=== PATIENT | female | born 1975 | race Caucasian/White ===

== ENCOUNTER 2024-04-12 19:25 | Emergency (ER) | payer OTHER, SELFPAY ==
[2024-04-12 19:35] VITALS: BP 183/112
[2024-04-12 19:44] LABS: % Basophils 0.4 % (0-2); % Eosinophils 1.4 % (0-6); % Immature Granulocytes 0.2 % (0-0.5); % Lymphocytes 34.1 % (20.5-51.1); % Monocytes 10.8 % (1.7-9.3); % Neutrophils 53.1 % (42.2-75.2); Absolute Eosinophils 0.1 10^3/uL (0-0.7); Absolute Lymphocytes 1.9 10^3/uL (1.2-3.4); Absolute Monocytes 0.6 10^3/uL (0.1-0.6); Hematocrit 35.6 % (37.0-47.0); Hemoglobin 12.7 g/dL (12.0-16.0); Mean Corp Hgb Conc. 35.7 g/dL (33.0-37.0); Mean Corpuscular Hgb 31.2 pg (27.0-31.0); Mean Corpuscular Volume 87.5 fL (81.0-99.0); Mean Platelet Volume 10.5 fL (7.4-10.4); Nucleated Red Blood Cells % 0 %; Platelet Count 214 10^3/uL (130-400); Red Blood Cell Count 4.07 10^6/uL (4.20-5.40); Red Cell Dist. Width 11.8 % (11.5-14.5); White Blood Cell Count 5.6 10^3/uL (4.8-10.8)
[2024-04-12 20:04] LABS: ALT (SGPT) 14 U/L (0-35); AST (SGOT) 22 U/L (14-36); Albumin 4.3 g/dl (3.5-5.0); Alkaline Phosphatase 54 U/L (38-126); Blood Urea Nitrogen 17 mg/dl (7-17); Calcium 9.7 mg/dl (8.4-10.2); Carbon Dioxide 26 mmol/L (22-30); Chloride 104 mmol/L (98-107); Glucose 111 mg/dl (70-99); Potassium 3.8 mmol/L (3.5-5.1); Sodium 138 mmol/L (135-145); Total Bilirubin 0.7 mg/dl (0.2-1.3); Total Protein 6.9 g/dl (6.3-8.2); eGFR > 60.00
[2024-04-12 20:19] VITALS: BP 166/99
--- NOTE | 2024-04-12 21:10 | ED.GENMED ---
History of Present Illness
General
Chief Complaint: Blood Pressure Problem
Source: patient
Exam Limitations: none
Time Seen by Provider: 04/12/24 20:49
Nursing documentation reviewed up to this point in time: agreed with
Travel History
Have you had any contact with someone who has COVID-19?: No
Do you have any symptoms of coronavirus? Fever > 100 degrees, chills, cough, shortness of breath, sore throat, loss of taste or smell, muscle aches, or headache?: No
History of Present Illness
History of Present Illness:
48-year-old female history of hypertension POTS lupus followed by rheumatology and cardiology for hypertension she takes lisinopril 20 mg twice a day also propranolol as needed palpitations she also has chronic neck pain which she states is
degenerative, has had injections previously never required surgery she had a long day at work had some muscle aches, felt a pop in her neck with headache concerned that something was injured, blood pressure was elevated EMS was called she had
recurrent chest pressure shortness of breath recently diagnosed with pleurisy on a steroid inhaler states her chest pressure gets worse when her blood pressure is up no arm or leg weakness no visual changes
Past History
Past History
ED Past Medical History: HTN, Other (Lupus, POTS, asthma, IBS, migraine headaches) and Other (MADDEN, lupus)
ED Past Surgical History: Orthopedic (Spinal cord implant)
Social History
Tobacco: Other (Occasional)
Alcohol: Occasional
Drug: Other (Medical marijuana)
Personal:
Living: with family
Employment: Employed
Family History
Family History: Hypertension
Review of Systems
Review of Systems
All Other Systems: Not applicable
Constitutional: Denies fever or fatigue
EENT: Reports other (Neck pain)
Respiratory: Reports trouble breathing
Cardiac: Reports chest pain
ABD/GI: Reports no symptoms; Denies abdominal pain or diarrhea
: Reports no symptoms
Musculoskeletal: Reports muscle pain and neck pain
Skin: Reports no symptoms
Neurological: Reports headache
Endocrine: Reports no symptoms
Psychiatric: Reports no symptoms
Phy Exam
Physical Exam
Physical Exam:
Physical Exam
General: no apparent distress, not acutely ill
Neck: Reproducible pain in her cervical spine and the paraspinal musculature
Heart: s1/s2 regular rate and rhythm, no murmur. equal radial pulses.
Lungs: no acute respiratory distress. clear bilaterally no wheezing
Abdomen: Nontender
Neuro: alert and oriented. no focal neurological deficits
Skin: no rash
Psychiatric: well kept. interactive and cooperative
Extremities: no edema.
Course
Orders/Labs/Results
Orders:
Orders
04/12/24 19:34
CBC/With Diff [Complete Blood Count/With Diff] Urgent
CMP [Comprehensive Metabolic Panel] Urgent
04/12/24 21:03
Electrocardiogram (*1) Stat
Reason for Study: Other
Other Reason for Exam: Headache
EKG- Treatment ONCE
diazePAM [Valium Injection] 5 mg IV NOW STA
04/12/24 21:04
CT Head & Neck Angio W/wo IV Urgent
Comment: Ok to modify per DR Mcintyre
Reason For Exam: neck pain
04/12/24 23:27
Ketorolac [Toradol] 30 mg IV NOW STA
diazePAM [Valium Injection] 5 mg IV NOW STA
Abnormal Lab Results
04/12/24
19:34
RBC 4.07 L 10^6/uL
(4.20-5.40)
Hct 35.6 L %
(37.0-47.0)
MCH 31.2 H pg
(27.0-31.0)
MPV 10.5 H fL
(7.4-10.4)
Monocytes % 10.8 H %
(1.7-9.3)
Glucose 111 H mg/dl
(70-99)
04/12/24 19:34
04/12/24 19:34
Vital Signs
Initial and Last Documented VS:
Initial Vital Signs
Temp Pulse Resp Pulse Ox
98.5 F 90 18 98
04/12/24 19:28 04/12/24 19:28 04/12/24 19:28 04/12/24 19:28
Last Documented Vital Signs
Temp Pulse Resp BP Pulse Ox
98.5 F 87 16 163/101 97
04/12/24 19:28 04/12/24 21:54 04/12/24 20:19 04/12/24 21:54 04/12/24 21:54
MDM/Problems Addressed
Differential Diagnosis Includes:
Wide including hypertensive urgency, exacerbation of her chronic neck pain, POTS related, lupus related conceivably vertebral dissection intracerebral hemorrhage
MDM/Problems Addressed:
Headache neck pain
Chronic conditions affecting care:
POTS Lupus hypertension
Acute Exacerbation and/or Progression of Chronic Illness:
POTS Lupus hypertension chronic neck pain
*Radiology
Radiology exam reviewed: radiology read reviewed
*Pulse Oximetry
Patient hypoxic: no
*EKG
Interpreted by ED Provider?: Yes
Interpretation: normal
Comparison EKG: no comparison EKG present
Heart Rate: 78
Rate: normal
Rhythm: sinus
QRS Pattern: normal QRS
Ischemia: no ischemia
*Social Work Nurse Interpretation
Rate: normal
Interpretation: normal
Heart Rate: 78
Rhythm: sinus
*Critical Care Note
Total Time (30-74mins, 75-104mins- exclusive of procedures): Not Applicable
Update Note
Update Note:
Suspect this all may be exacerbation of her chronic issue states she did have a pop in her neck blood pressure was up, will try to get her comfortable some Valium, blood pressure already coming down, will check CT angiogram, rule out dissection or
hemorrhage, see how she responds to treatment
11:15 PM CAT scan noted
Patient states he is feeling better subjectively she looks better still little bit of spasm in her neck labs are noted CAT scan noted reviewed with patient will try another dose of Valium and some Toradol
ED Attending Note
-
Portions of this chart may have been created with voice recognition software.� Occasional wrong word or��sound alike� substitutions may have occurred due to the inherent limitations of voice recognition software.
Discharge Plan
Departure
Patient Disposition: Home (Routine Discharge)
Date of Disposition: 04/12/24
Time of Disposition: 23:28
Patient with high blood pressure during this ER visit?: Yes
Condition: Good
Discharge Problem:
Neck pain
Instructions: High Blood Pressure (DC), Neck Pain ED
Prescriptions:
New
diazepam [Valium] 5 mg tablet
5 mg PO TID PRN (Reason: muscle spasm) Qty: 14 0RF
No Action
rizatriptan [Maxalt] 10 MG tablet
10 mg PO PRN PRN (Reason: migraines)
hydroxychloroquine 200 MG tablet
200 mg PO DAILY
ibuprofen 600 MG tablet
600 mg PO DAILY
fluoxetine 20 MG capsule
20 mg PO BID
dicyclomine 10 MG capsule
10 mg PO PRN PRN (Reason: IBS)
prednisone 10 mg Tablet
10 mg PO DAILYPRN PRN (Reason: lupus flare)
propranolol 10 mg Tablet
10 mg PO DAILYPRN PRN (Reason: tachycardia from MADDEN)
lisinopril 10 mg Tablet
20 mg PO BID
Aimovig Autoinjector 140 mg/mL Auto-Injector
140 mg SC QMONTH
leflunomide
PO DAILY
Patient Comments:
pt does not know mg
Referrals:
Ally Reynolds MD [Family Provider] -
Interventions
Interventions:
*Risk Screen - Suicide Last Done: 04/12/24 19:28
*General Assessment Last Done: 04/12/24 19:28
*Neglect/Abuse Screening Last Done: 04/12/24 19:28
ED- Cardiac Assessment Last Done: 04/12/24 20:18
ED- Neurological Assessment Last Done: 04/12/24 20:18
ED- Pulmonary Assessment Last Done: 04/12/24 20:18
Discharge Date and Time
Print Language: MACEDONIAN
[2024-04-12] MEDS: VALIUM INJECTION 5 MG IV ×2 (21:11→23:39)
[2024-04-12 21:54] VITALS: BP 163/101
[2024-04-12] MEDS: TORADOL 30 MG IV (23:49)
[2024-04-13 00:28] VITALS: BP 153/95
[2024-04-13 00:30] VITALS: BP 153/95
== END 2024-04-13 00:32 | disposition home or self-care (01) ==
LOC: EMR 19:25
PROVIDERS: Student in an Organized Health Care Education/Training Program; EMERGENCY PHYSICIAN Emergency Medicine; FAMILY PHYSICIAN Internal Medicine
DX: M54.2 Cervicalgia (principal); I10 Essential (primary) hypertension
CPT/HCPCS: 99285; 96374; 96375; 96376; 70496; 70498; 80053; 85025; 93005; Q9967

== ENCOUNTER → 2024-11-28 13:08 | Outpatient (REF) | payer MEDICARE, SELFPAY | LOC: RCS 13:08 | PROVIDERS: ATTENDING PHYSICIAN Physician Assistant Medical; FAMILY PHYSICIAN Internal Medicine | DX: I10 Essential (primary) hypertension (principal) | CPT/HCPCS: 93306 ==

== ENCOUNTER → 2024-11-28 13:09 | Outpatient (REF) | payer MEDICARE, SELFPAY | LOC: RCS 13:09 | PROVIDERS: ATTENDING PHYSICIAN Physician Assistant Medical; FAMILY PHYSICIAN Internal Medicine | DX: R07.89 Other chest pain (principal); R06.09 Other forms of dyspnea | CPT/HCPCS: 93017 ==